=== PATIENT | male | born 1975 | race Caucasian/White ===

== ENCOUNTER 2017-10-17 11:16 | Emergency (ER) | payer MEDICAID ==
[~2017-10-17] VITALS: Ht 172.7 cm; Wt 63.5 kg
[2017-10-17] MEDS ORDERED: PROTONIX40 MG ORAL (11:32)
[2017-10-17] MEDS ORDERED: INDOMETHACIN50 MG PO (11:32)
[2017-10-17] MEDS ORDERED: Ketorolac 30mg Inj IM ONE (12:15)
[2017-10-17] MEDS ORDERED: DiphenhydrAMINE 50mg/ml Inj IM ONE (12:15)
[2017-10-17] MEDS ORDERED: Metoclopramide 10mg/2ml Inj IM ONE (12:15)
[2017-10-17] MEDS ORDERED: BENADRYL25 MG ORAL (12:46)
[2017-10-17] MEDS ORDERED: IBUPROFEN600 MG ORAL (12:46)
[2017-10-17] MEDS ORDERED: ZOFRAN4 M3 ORAL (12:46)
[2017-10-17 12:55] VITALS: BP 127/90
--- NOTE | 2017-10-17 22:59 | Emergency Room Report ---
History of Present Illness General Chief Complaint: Pain Source: Patient Present Illness HPI The patient is a 42-year-old male with a history of chronic migraines presenting for headache. He states that this began 2 days prior described as a 8/10 sharp sensation to the right side of his face and head. He states that this feels typical for his headaches. He usually uses indomethacin which helps but has not helped this time. He denies any other symptoms including nausea, vomiting, fever, chills, neck pain or stiffness, dizziness, blurred vision Allergies: Coded Allergies: No Known Allergies (Unverified , 10/17/17) Patient History Past Medical History: see triage record Pertinent Family History: none Reviewed Nursing Documentation: PMH: Agreed, PSxH: Agreed Review of Systems All Other Systems: negative except mentioned in HPI Physical Exam Vital Signs Date Time Temp Pulse Resp B/P (MAP) Pulse Ox O2 Delivery O2 Flow Rate FiO2 10/17/17 11:28 98.2 78 17 125/89 98 Room Air Sp02 EP Interpretation: reviewed, normal General Appearance: no apparent distress, alert, GCS 15, non-toxic Head: normocephalic, atraumatic Eyes: bilateral eye normal inspection, bilateral eye PERRL ENT: hearing grossly normal, normal pharynx, no angioedema, normal voice Neck: full range of motion, supple/symm/no masses Musculoskeletal: back normal, gait/station normal, normal range of motion, non- tender Neurologic: alert, oriented x3, responsive, motor strength/tone normal, sensory intact, speech normal Psychiatric: judgement/insight normal, memory normal, mood/affect normal, no suicidal/homicidal ideation Skin: normal color, no rash, warm/dry, well hydrated Medical Decision Making PA Attestation Dr. Marinelli is my supervising physician. Patient management was discussed with my supervising physician Diagnostic Impression: Primary Impression: Headache Qualified Codes: R51 - Headache ER Course The patient is a 42-year-old male with a history of chronic migraines presenting for headache. Differential diagnoses include but not limited to Migraine, tension headache, cluster PRUETT, among others PE: NAD. HEENT exam is unremarkable. PERRL. Non tender to palpation. Neck is soft and supple. Nontender. The patient is given IM Toradol, Reglan, and Benadryl. He is feeling better. He'll be discharged home. ER precautions are given Last Vital Signs Date Time Temp Pulse Resp B/P (MAP) Pulse Ox O2 Delivery O2 Flow Rate FiO2 10/17/17 12:55 82 18 127/90 98 Room Air 10/17/17 12:55 98.2 Status: improved Disposition: HOME, SELF-CARE Condition: Improved Scripts Diphenhydramine Hcl* (BENADRYL*) 25 Mg Capsule 25 MG ORAL Q6H Y for For Pain, #10 CAP Prov: MATTEO RODARTE P.A. 10/17/17 Ondansetron* (ZOFRAN*) 4 Mg Tablet 4 MG ORAL Q6H Y for Nausea & Vomiting, #10 TAB Prov: MATTEO RODARTE P.A. 10/17/17 Ibuprofen* (MOTRIN*) 600 Mg Tablet 600 MG ORAL Q8H Y for For Pain, #30 TAB 0 Refills Prov: MATTEO RODARTE P.A. 10/17/17 [facility],REFERRING (PCP) Patient Instructions: Migraine Headache Additional Instructions: I discussed my findings with the patient. All questions and concerns have been answered. Treatment and medication compliance have been addressed. I advised the patient that they need to follow up with PMD in 3-5 days. Return to ED if symptoms worsen, new symptoms arise, or if needed for any reason. Patient verbalized understanding of discharge instructions. MATTEO RODARTE Oct 17, 2017 22:59
== END 2017-10-17 12:55 | disposition home or self-care (01) ==
LOC: EMR 12:15
DX: R51 Headache (principal)
CPT/HCPCS: 96372; 99284; J1200; J1885; J2765